=== PATIENT | female | born 1985 ===

== ENCOUNTER 2017-09-17 07:28 | Day surgery (SDC) | payer OTHER ==
[~2017-09-17] VITALS: Ht 162.6 cm; Wt 54.9 kg
== END 2017-09-17 12:20 | disposition home or self-care (01) ==
LOC: ORSCMMR 07:28 → ORD 11:30 → ORSCMMR 12:20
PROVIDERS: Obstetrics & Gynecology
PROC: 0UT54ZZ Resection of Right Fallopian Tube, Percutaneous Endoscopic Approach (ICD-10-PCS; principal; 2017-09-17 09:00)
PROC: 0UBF4ZX Excision of Cul-de-sac, Percutaneous Endoscopic Approach, Diagnostic (ICD-10-PCS; principal; 2017-09-17 09:00)
PROC: 0UT04ZZ Resection of Right Ovary, Percutaneous Endoscopic Approach (ICD-10-PCS; principal; 2017-09-17 09:00)
DX: N83.291 Other ovarian cyst, right side (principal); N80.3 Endometriosis of pelvic peritoneum; R10.2 Pelvic and perineal pain; N94.6 Dysmenorrhea, unspecified
CPT/HCPCS: 88305; J0171; J1100; J1885; J2250; J2370; J2405; J2710; J3010; J7120

== ENCOUNTER → 2020-12-07 | Outpatient (CLI) | payer OTHER ==
[2020-12-08 13:10] LABS: HPV 16 Negative (Negative); HPV 18 Negative (Negative); HPV OTHER HR TYPES Negative (Negative)
== END | disposition home or self-care (01) ==
LOC: LAB 09:24 → LAB SHORT 09:24
PROVIDERS: Obstetrics & Gynecology
DX: Z01.419 Encounter for gynecological examination (general) (routine) without abnormal findings (principal)
CPT/HCPCS: 87624; G0123

== ENCOUNTER 2021-04-11 05:49 | Day surgery (SDC) | payer OTHER ==
[~2021-04-11] VITALS: Ht 170.2 cm; Wt 55.6 kg
--- NOTE | 2021-04-11 07:03 | NUR ---
History, Chart, Medications and Allergies reviewed before start of procedure.Patient confirms NPO status and agrees with scheduled surgery. Patient reports completing Chlorhexadine shower X2 prior to admission to hospital.Surgical site prepped with 2% Chlorhexidine cloth wipe.
--- NOTE | 2021-04-11 10:14 | NUR ---
ARRIVAL TO UNIT PT ARRIVED TO UNIT AT 0945. PT [id number]. LUNGS CLEAR T/O. K PAD PROVIDED. DENIES PAIN OR NAUSEA. EDUCATED PT ON NEED TO CALL SOON SHE FEELS ANY PAIN BEGINNING. LAP SITES X3 CDI. STILL IN PLACE, WILL REMOVE PER ORDERS. PROVIDED WITH WATER AND JELLO TO START PO INTAKE. PLAN IS TO ENCOURAGE AMBULATION AND DEEP BREATHING.
--- NOTE | 2021-04-11 10:25 | NUR ---
Pt ok with student nurse caring for her. dc'd dutta per orders, Pt up to bathroom standby assist. No complaints of pain, nausea, dizziness upon ambulation. unable to void at this time. Plan to continue to await first post dutta removal void.
--- NOTE | 2021-04-11 12:35 | NUR ---
WRITTEN PRESCRIPTIONS SENT WITH PRIOR TO DISCHARGE. 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
[2021-04-11] MEDS ORDERED: DOCU100 PO (12:42)
[2021-04-11] MEDS ORDERED: HYDR1TAB94 PO (12:43)
[2021-04-11] MEDS ORDERED: IBUP400 PO (12:44)
[2021-04-11] MEDS ORDERED: ZOFRAN4 MG PO (12:45)
--- NOTE | 2021-04-11 13:35 | NUR ---
DISCHARGE PT LEFT AT 1330. IV REMOVED PRIOR TO DISCHARGE. DISCHARGE INSTRUCTIONS GONE OVER WITH PATIENT. PRESCRIPTIONS TAKEN AND PICKED UP BY PRIOR TO DISCHARGE. PT HAS BEEN UP AND VOIDING. TOLERATING PO, NO PAIN OR NAUSEA. GAVIN PAD DRY, NO DRAINAGE SEEN. ALL BELONGINGS SENT WITH PATIENT.
--- NOTE | 2021-04-12 15:25 | NUR ---
04/12/21 1525 Allison Davis VERIFICATIONS: EDIT CHART.
== END 2021-04-11 13:30 | disposition home or self-care (01) ==
LOC: ORSCMMR 05:49 → SURS 09:49 → ORD 10:00 → ORSCMMR 10:00
PROVIDERS: Obstetrics & Gynecology
PROC: 0UT9FZZ Resection of Uterus, Via Natural or Artificial Opening With Percutaneous Endoscopic Assistance (ICD-10-PCS; principal; 2021-04-11 07:30)
PROC: 0UT6FZZ Resection of Left Fallopian Tube, Via Natural or Artificial Opening With Percutaneous Endoscopic Assistance (ICD-10-PCS; principal; 2021-04-11 07:30)
DX: N80.3 Endometriosis of pelvic peritoneum (principal); N94.6 Dysmenorrhea, unspecified; R10.2 Pelvic and perineal pain; N80.0 Endometriosis of uterus; N92.0 Excessive and frequent menstruation with regular cycle; F41.9 Anxiety disorder, unspecified
CPT/HCPCS: 88307; A9270; J0171; J0690; J1100; J1885; J2250; J2405; J2704; J3010; J7120